=== PATIENT | female | born 1940 ===

== ENCOUNTER 2018-10-07 08:36 | Inpatient (IN) | payer MEDICARE, MEDICAID ==
[~2018-10-07] VITALS: Ht 162.6 cm; Wt 75.7 kg
[2018-10-07] VITALS (10 sets, daily range): BP systolic 107–135; BP diastolic 53–76
[~2018-10-07 08:36] MED LIST: Midazolam 2mg/2ml Inj ONE; fentaNYL 100 mcg/2 mL IV ONE
--- NOTE | 2018-10-07 08:45 | Anethesia Preoperative Eval ---
Anesthesia Pre-op PMH/ROS General Date of Evaluation: Oct 07, 2018 Anesthesiologist: Bennie ASA Score: ASA 3 Mallampati Score Class I : Soft palate, uvula, fauces, pillars visible Class II: Soft palate, uvula, fauces visible Class III: Soft palate, base of uvula visible Class IV: Only hard plate visible Mallampati Classification: Class III Surgeon: Dea Diagnosis: Left knee OA Surgical Procedure: Left TKR Anesthesia History: none Family History: no anesthesia problems Allergies: Coded Allergies: No Known Allergies (Unverified , 10/07/18) Medications: see eMAR Patient NPO?: Yes NPO Date: Oct 06, 2018 NPO Time: 22:00 Past Medical History Cardiovascular: Reports: HTN, other - HLD; Denies: CAD, IA, valve dz, arrhythmia Pulmonary: Reports: other - h/o PE; Denies: asthma, COPD, GIOVANNI Gastrointestinal/Genitourinary: Denies: GERD, CRI, ESRD, other Neurologic/Psychiatric: 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 Exam Physician Exam see chart Constitutional: NAD Cardiovascular: RRR Respiratory: CTA Airway Exam Mallampati Score: Class III MO: full ROM: limited Anesthesia Pre-op A/P Labs see chart Studies Pre-op Studies: EKG - sr Risk Assessment & Plan Assessment: ASA III Plan: GA with spinal Status Change Before Surgery: No Pre-Antibiotics Drug: Ancef 1g Given Within 1 Hr of Incision: Yes Franny Corea MD Oct 07, 2018 08:45
[2018-10-07] MEDS ORDERED: Bacitracin 50000 Units Vial ONE ×2 (09:57→12:15)
[2018-10-07] MEDS ORDERED: NeoSporin Gu Irrig 1ml Amp IRRIG ONE ×2 (09:57→12:15)
[2018-10-07] MEDS ORDERED: OMEPRAZOLE20 M2 ORAL (10:04)
[2018-10-07] MEDS ORDERED: CARAFATE1 G1 ORAL (10:04)
[2018-10-07] MEDS ORDERED: LISINOPRIL10 MG ORAL (10:04)
[2018-10-07] MEDS ORDERED: GABAPENTIN300 MG ORAL (10:04)
[2018-10-07] MEDS ORDERED: VITAMIN D1000 UNI1 ORAL (10:04)
[2018-10-07] MEDS ORDERED: ASPIR 8181 MG ORAL (10:04)
[2018-10-07] MEDS ORDERED: CALCIUM600 M1 PO (10:04)
[2018-10-07] MEDS ORDERED: ATORVASTATIN CA20 MG ORAL (10:04)
[2018-10-07] MEDS ORDERED: MAGNESIUM500 MG PO (10:04)
[2018-10-07] MEDS ORDERED: TRAMADOL HCL50 MG ORAL (10:04)
[2018-10-07] MEDS ORDERED: Lidocaine 1% MPF 10mg/ml 5ml ONE (10:23)
[2018-10-07] MEDS ORDERED: Morphine Sulfate PF 10 ML ONE (10:23)
[2018-10-07] MEDS ORDERED: Propofol 200mg/20ml IV ONE (10:23)
[2018-10-07] MEDS ORDERED: cloNIDine 1000mcg/10ml inj ONE (10:23)
[2018-10-07] MEDS ORDERED: Tranexamic Acid 1,000 MG in NS 55 ML IV ONE (10:30)
--- NOTE | 2018-10-07 10:59 | Pre-Procedure Note/Attestation ---
Pre-Procedure Note/Attestation Complete Prior to Procedure Planned Procedure: left Procedure Narrative: left knee replacement Indications for Procedure Pre-Operative Diagnosis: left knee oa Attestation I attest that I discussed the nature of the procedure; its benefits; risks and complications; and alternatives (and the risks and benefits of such alternatives ), prior to the procedure, with the patient (or the patient's legal site safety representative). I attest that, if there was a reasonable possibility of needing a blood transfusion, the patient (or the patient's legal site safety representative) was given the [facility] standardized written summary, pursuant to the Shawn Rachel Blood Safety Act ([place] Health and Safety Code # 1645, as amended). I attest that I re-evaluated the patient just prior to the surgery and that there has been no change in the patient's H&P, except as documented below: Umair Reilly MD Oct 07, 2018 10:58
[2018-10-07] MEDS ORDERED: Sterile Water Irrig 1000ml IRRIG ONE (11:00)
[2018-10-07] MEDS ORDERED: NS Irrig 1000ml ONE (11:00)
[2018-10-07] MEDS ORDERED: HYDROmorphone 1mg/ml Carpuject SUBQ PRN (11:00)
[2018-10-07] MEDS ORDERED: Metoclopramide 10mg/2ml Inj ONE (11:00)
[2018-10-07] MEDS ORDERED: NS Irrig 2000ml IRRIG ONE ×3 (11:00→11:43)
[2018-10-07] MEDS ORDERED: LR 1000ml 1,000 ML IVLG SCH (11:20)
[2018-10-07] MEDS ORDERED: ePHEDrine 50mg/ml Inj ONE (11:24)
[2018-10-07] MEDS ORDERED: fentaNYL 100 mcg/2 mL IV PRN (11:30)
[2018-10-07] MEDS ORDERED: LORazepam Inj 2mg/ml 1ml IV PRN (11:30)
[2018-10-07] MEDS ORDERED: Midazolam 2mg/2ml Inj IVP PRN (11:30)
[2018-10-07] MEDS ORDERED: Metoclopramide 10mg/2ml Inj IVP PRN (11:30)
[2018-10-07] MEDS ORDERED: DiphenhydrAMINE 50mg/ml Inj IVP PRN (11:30)
[2018-10-07] MEDS ORDERED: Hydromorphone 0.5mg/0.5ml inj IVP PRN (11:30)
--- NOTE | 2018-10-07 12:52 | Immediate Post-Op Evaluation ---
Immediate Post-Op Evalulation Immediate Post-Op Evalulation Procedure: Left TKR Date of Evaluation: Oct 07, 2018 Time of Evaluation: 12:54 IV Fluids: 1.8L Blood Products: 0 Estimated Blood Loss: 125 Urinary Output: 325 Blood Pressure Systolic: 113 Blood Pressure Diastolic: 56 Pulse Rate: 88 Respiratory Rate: 16 O2 Sat by Pulse Oximetry: 99 Temperature (Fahrenheit): 97 Pain Score (1-10): 0 Nausea: No Vomiting: No Complications 0 Patient Status: awake, reacts, patent, none Hydration Status: adequate Drug: Ancef 1g Given Within 1 Hr of Incision: Yes Franny Corea MD Oct 07, 2018 12:52
--- NOTE | 2018-10-07 14:15 | NUR ---
NURSE NOTES: Minna DOSHI brought patient by bed in stable condition. Alert and oriented x4. No complain of pain or distress at this time. Skin intact and dry. Surgical dressing intact and dry. Knee immobilizer placed. IV dressing intact and dry. Belonging given to family member. Bed lowest position. Call light within reach. Will continue to monitor.
[2018-10-07] MEDS ORDERED: Milk of Magnesia 30ml Ud ORAL PRN (15:09)
[2018-10-07] MEDS ORDERED: Chloraseptic Spray 20mL Bottle ORAL PRN (15:14)
[2018-10-07] MEDS ORDERED: Tylenol #3 tab (300mg/30mg) ORAL PRN (15:15)
[2018-10-07] MEDS ORDERED: traMADol 50mg tab ORAL PRN (15:16)
[2018-10-07] MEDS: D5 1/2NS w/KCl 20mEq 1,000 ML IV SCH (16:23)
[2018-10-07] MEDS: HYDROcodone/Acetamin 5/325 tab ORAL PRN (17:57)
[2018-10-07] MEDS: Docusate 100mg/10ml Liq ORAL SCH (18:00)
--- NOTE | 2018-10-07 19:40 | NUR ---
HAND-OFF: Report given to Fitz DOSHI. Patient in stable condition.
--- NOTE | 2018-10-07 19:45 | NUR ---
NURSE NOTES: Received report from GLENDA Pak. Received pt lying in bed, AOX4, Irish speaking only, daughter at bedside used as professor of medicine, denies pain at this time, no distress noted. L knee surgical dressing C/D/I. Scd in-place on right leg. IV fluid infusing as ordered. Kumar catheter in place draining yellow color output. Bed in lowest position and locked, side rails up x 2, call light within reach. Will continue to monitor.
--- NOTE | 2018-10-07 20:09 | Cardiology Progress Note ---
Assessment/Plan Assessment/Plan [id number] dvt ppx lmwh orderd by dr durbin IS on iv ancef u/a preop no wbc , contaminated idalia will give once dose of cipro bid abdulkadir 3 day Objective Last 24 Hour Vital Signs Date Time Temp Pulse Resp B/P (MAP) Pulse Ox O2 Delivery O2 Flow Rate FiO2 10/07/18 16:00 97.5 69 18 120/61 (80) 99 10/07/18 13:50 98.8 60 21 116/58 100 Nasal Cannula 3 10/07/18 13:35 62 12 114/56 100 Nasal Cannula 3 10/07/18 13:20 63 13 121/54 100 Nasal Cannula 3 10/07/18 13:10 67 22 127/53 100 Nasal Cannula 3 10/07/18 12:59 76 20 119/56 99 Simple Mask 6 10/07/18 12:54 74 16 119/58 99 Simple Mask 6 10/07/18 12:52 88 16 99 10/07/18 12:49 97.6 88 16 113/56 99 Simple Mask 6 10/07/18 09:15 97.6 70 18 135/76 (95) 97 10/07/18 09:15 Room Air Asher Gasca MD Oct 07, 2018 20:09
[2018-10-07] MEDS: ceFAZolin 1gm/50ml Premix 50 ML IV SCH (20:27)
[2018-10-07] MEDS: Hydromorphone 0.5mg/0.5ml inj SUBQ PRN (21:03)
[2018-10-08] VITALS: BP 111/63
[2018-10-08] MEDS: HYDROcodone/Acetamin 5/325 tab ORAL PRN (00:18)
[2018-10-08] MEDS: D5 1/2NS w/KCl 20mEq 1,000 ML IV SCH ×2 (00:19→13:58)
[2018-10-08] MEDS: ceFAZolin 1gm/50ml Premix 50 ML IV SCH (03:46)
[2018-10-08] MEDS: Hydromorphone 0.5mg/0.5ml inj SUBQ PRN (03:50)
[2018-10-08 04:00] VITALS: BP 109/62
[2018-10-08] MEDS ORDERED: HYDROcodone/Acetamin 10/325 tab ORAL PRN (06:30)
[2018-10-08] MEDS ORDERED: Hydromorphone 0.5mg/0.5ml inj IVP PRN (06:30)
--- NOTE | 2018-10-08 06:30 | NUR ---
NURSE NOTES: Dr. Milner called ordered to change Dilaudid sub cut to IVP. Per Dr. Milner, give a dose of Dilaudid 0.5mg IVP once medication is verified. Will carry out order.
--- NOTE | 2018-10-08 06:32 | NUR ---
NURSE NOTES: Dilaudid 0.5mg IVP administered early per Dr. Milner's order.
--- NOTE | 2018-10-08 07:29 | NUR ---
HAND-OFF: Report given to GLENDA Padilla. Pt in stable condition.
[2018-10-08 07:36] LABS: BASOPHILS % (AUTO) 0.3 % (0.0-2.0); EOSINOPHILS % (AUTO) 0.1 % (0.0-3.0); HEMATOCRIT 36.9 % (37.0-47.0); HEMOGLOBIN 12.1 G/DL (12.0-16.0); LYMPHOCYTES % (AUTO) 12.4 % (20.0-45.0); MEAN CORPUSCULAR VOLUME 88 FL (80-99); MONOCYTES % (AUTO) 9.9 % (1.0-10.0); NEUTROPHILS % (AUTO) 77.4 % (45.0-75.0); PLATELET COUNT 191 K/UL (150-450); RED BLOOD COUNT 4.17 M/UL (4.20-5.40); RED CELL DISTRIBUTION WIDTH 12.6 % (11.6-14.8); WHITE BLOOD COUNT 8.8 K/UL (4.8-10.8)
[2018-10-08 08:00] VITALS: BP 133/66
--- NOTE | 2018-10-08 08:00 | NUR ---
NURSE NOTES: Received report from Fitz Whittaker. pt a/a/o x4 laying in bed with no signs of distress or other issues at this time. surgical dressing dry and intact, knee immobilizer in place. IV on the right PONCE #18 running D5 1/2 NS @75ml/hr. pt is on a regular diet and tolerating it well. pt's daughter at the bedside. call light within reach. bed in lowest position. Side rales up x2. I will f/u as needed.
[2018-10-08] MEDS: Docusate 100mg/10ml Liq ORAL SCH ×2 (08:16→17:17)
[2018-10-08] MEDS: Enoxaparin 40mg Inj SUBQ SCH (08:17)
[2018-10-08] MEDS: Hydromorphone 0.5mg/0.5ml inj IVP PRN ×2 (09:02→12:34)
--- NOTE | 2018-10-08 09:30 | NUR ---
PT EVALUATION NOTE Patient seen for initial evaluation, see complete evaluation for details. Patient presents with impaired functional mobility and pain s/p L TKR. Patient will benefit from skilled inpatient PT intervention to address strength, balance, safety and functional mobility. Recommend discharge home with home PT and family assistance once cleared by MD. Patient received FWW for home use, may benefit from raised toilet seat. Addendum: 10/08/18 at 1204 by NICK OCONNELL PT Amended: Links added.
--- NOTE | 2018-10-08 09:32 | Diagnostic Imaging Report ---
Indications: Postoperative, Status post total knee arthroplasty; pain Technique: Two views of the left knee Comparison: 4 hours earlier Findings: Two postoperative views of the left knee demonstrate total knee arthroplasty, good anatomic alignment of the prosthesis. Retained air from the surgical exposure is seen within the soft tissues. There are overlying skin ellie. A knee immobilizer is in place. Impression: Postoperative left knee, no unusual features.
--- NOTE | 2018-10-08 09:32 | Diagnostic Imaging Report ---
Indication: Knee pain Technique: 3 views of the knee Comparison: None Findings: There is medial compartmental and patellofemoral compartmental degenerative joint space narrowing. There is chondrocalcinosis of the medial and lateral menisci. Degenerative proliferative changes are seen as well. No acute fractures. No dislocations. No suprapatellar effusion. Impression: Degenerative changes, as described No acute bony trauma Meniscal chondrocalcinosis
[2018-10-08 12:00] VITALS: BP 129/58
--- NOTE | 2018-10-08 13:13 | Consultation ---
DATE OF CONSULTATION: 10/07/2018 INTERNAL MEDICINE CONSULTATION CONSULTING PHYSICIAN: Asher Gasca M.D. REFERRING PHYSICIAN: Umair Reilly M.D. REASON FOR REFERRAL: Postoperative medical care. HISTORY OF PRESENT ILLNESS: This is a 78-year-old female, who is known to me from prior evaluation and hospitalization in the office. The patient has undergone total knee replacement by Dr. Mishra. She is being seen postoperatively. She does not have any chest pain or pressure. No PND. No orthopnea. No palpitations. No dizziness or lightheadedness. PAST MEDICAL HISTORY: Positive for history of hypertension, hyperlipidemia, CVA with left-sided weakness at age 36, history of renal insufficiency, history of pulmonary embolism after DVT treated with Coumadin for 10 months in 2013 which maybe related to long air flights, otherwise denied other medical problems. PAST SURGICAL HISTORY: Right knee surgery, , and hemorrhoidectomy. ALLERGIES: None. FAMILY HISTORY: No premature coronary artery disease. SOCIAL HISTORY: Tobacco, never. Alcohol, never. Drugs, never. with three kids. 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 REVIEW OF SYSTEMS: GASTROINTESTINAL: Negative. GENITOURINARY: Negative. She has a Kumar catheter. PULMONARY: Negative. CONSTITUTIONAL: Negative. NEUROLOGIC: Negative. PHYSICAL EXAMINATION: GENERAL: Shows to be female, in no respiratory distress. VITAL SIGNS: Her blood pressure is anywhere between 116/50 to 127/53, heart rate is 60, and temperature is 98 degrees. NECK: Supple. No jugular venous distention. LUNGS: Clear to auscultation and percussion. CARDIAC: Regular rate and rhythm. No heaves, thrills, gallops, or rubs are noted. ABDOMEN: Soft, nontender. Positive bowel sounds. EXTREMITIES: There is no edema to the area below the knee. She is able to move her feet without any problems. LABORATORY AND DIAGNOSTIC DATA: Laboratory values are none. Postop and preop laboratories were reviewed are addended elsewhere. Her urinalysis had shown basically a contaminated urine. She had no wbc's in the urinalysis, so she was not felt to need any treatment. INR was 1 and PTT was normal. White count 5.4, hemoglobin 14.6, platelet count of 263,000. PTT was 27. Sodium 142, potassium 5, chloride 105, bicarbonate 24, BUN of 16, creatinine of 1.0. Other than the above, CMP was also negative. ASSESSMENT AND PLAN: 1. Postop day 0, post total knee replacement. 2. History of hypertension. 3. History of hyperlipidemia. 4. History of pulmonary embolism. 5. History of deep venous thrombosis. Dr. Mishra, this patient was seen in cardiac consultation. The patient has had an ischemia evaluation that was fairly unremarkable with very small ischemic burden. No significant other abnormalities were noted. Chest x-ray was normal preop. The patient is doing well postoperatively. She should be started on DVT prophylaxis. She will be treated with a course of Ancef for the time being. She is on IV fluids until she starts her oral medications. Her usual medications will be otherwise continued. Thus, she is supposed to get started with Lovenox as ordered tomorrow morning for DVT prophylaxis. She will be monitored as carefully as needed and possible. Dr. Milner will see the patient in consultation for pain management. Asher Gasca M.D. DR: CINDI JOB#: [id number] CC:
--- NOTE | 2018-10-08 13:47 | 48 Hour Post Anesthesia Eval ---
Post Anesthesia Evaluation Procedure: Left TKR Date of Evaluation: Oct 08, 2018 Time of Evaluation: 13:45 Blood Pressure Systolic: 125 0: 76 Pulse Rate: 72 Respiratory Rate: 20 Temperature (Fahrenheit): 97.5 O2 Sat by Pulse Oximetry: 98 Airway: patent Nausea: No Vomiting: No Pain Intensity: 3 Hydration Status: adequate Cardiopulmonary Status: stable Mental Status/LOC: patient returned to baseline Follow-up Care/Observations: n/a Post-Anesthesia Complications: none Follow-up care needed: N/A Nii Solares MD Oct 08, 2018 13:47
--- NOTE | 2018-10-08 14:00 | NUR ---
NURSE NOTES: per PT pt was not able to tolerated CPM due to pain. pt was only able to tolerate up to 35 degrees x3hrs. I will f/u as needed.
[2018-10-08] MEDS ORDERED: Tubing IV Secondary IV ONE (14:57)
[2018-10-08 16:00] VITALS: BP 135/67
--- NOTE | 2018-10-08 16:30 | Progress Note ---
DATE: 10/08/2018 ACUTE PAIN MANAGEMENT PHYSICIAN PROGRESS NOTE: MEDICATIONS: Medication administration record reviewed. Medications include IV fluids, ciprofloxacin, Colace, Lipitor, Pepcid, Lovenox, Protonix, Neurontin. PRN medications include Fioricet, Tylenol no. 3 with Codeine, Benadryl, Catapres, Chloraseptic spray, milk of magnesia, Mylanta, Zofran, tramadol, [place], Dilaudid. LABORATORY STUDIES: No interval laboratory studies. OBJECTIVE: Vital signs within normal limits. Afebrile, pulse 68, respirations 17, blood pressure 109/62, oxygen saturation 96% on room air. I saw the patient at bedside with her daughter who interpreted Hungarian. I discussed the case with the overnight nurse RN, Fitz. The patient's pain levels have been considerable overnight. She does have obstructive sleep apnea symptoms, so she needs to be monitored closely for any respiratory difficulties. She is 78 years old and at risk for perioperative morbidity. The patient was trialed on the doses of [place] 5 mg along with the subcutaneous Dilaudid 0.5 mg. The dosing of 0.5 mg Dilaudid seemed to be effective, but the patient did request that the dose be switched from subcutaneous to the intravenous route. Since the patient did tolerate the 0.5 mg dose subcutaneous well, I will trial her on the IV dose to see if the patient prefers such. The patient did trial [place] 5 mg. This dosing was inadequate and I will double the dose to 10 mg. The nursing and pharmacy departments have been instructed to wait at least 60 minutes between any doses of sedating medications to avoid respiratory depression. Dr. Gasca is following the patient for her multiple medical issues including her high risk for DVT. The patient does have a history of pulmonary embolism in the past. The patient has been started on anticoagulation agent Lovenox 40 mg subcutaneously, which will start at 9 a.m. this morning. I have ordered incentive spirometer to encourage good pulmonary toilet. I have streamlined her medication list discontinuing the previous orders for Tylenol no. 3 with Codeine. She will continue with her Neurontin 3 times a day. She takes chronically. Roman Milner M.D. DR: JONE JOB#: [id number] CC:
--- NOTE | 2018-10-08 17:00 | Consultation ---
DATE OF CONSULTATION: 10/07/2018 CONSULTING PHYSICIAN: Roman Milner M.D. REFERRING PHYSICIAN: Umair Reilly M.D. REASON FOR CONSULTATION: Acute pain consult. HISTORY OF PRESENT ILLNESSS: Dear Dr. Reilly, Thank you kindly for consulting me to evaluate and render an opinion as to how to proceed in the management of the patient's acute postoperative left knee pain after left total knee arthroplasty. The patient is a 78-year-old elderly woman, who underwent left total knee arthroplasty, today consulted me to help with her pain control. I saw the patient at bedside. I performed detailed history and physical examination. I discussed the case with the recovery room nurse RN, Zain along with the orthopedic floor nurse RN, Pasha. I reviewed the medical record in detail including advance directives. PAST MEDICAL HISTORY: 1. Postoperative left knee pain, status post left total knee arthroplasty by Dr. Umair Reilly in September 2018. 2. Elderly age. 3. GERD. 4. Hypertension. 5. Hypercholesterolemia. 6. History of previous pulmonary embolism. PAST SURGICAL HISTORY: Right knee surgery, section, and hemorrhoidectomy. ALLERGIES: No known drug allergies. MEDICATIONS: Medications at home, baby aspirin, Zocor, calcium, gabapentin 300 mg three times a day, lisinopril, Prilosec, sucralfate (Carafate), and Ultram. FAMILY HISTORY: Noncontributory. SOCIAL HISTORY: Negative for tobacco or alcohol usage. REVIEW OF SYSTEMS: Per Dr. Gasca. PHYSICAL EXAMINATION: VITAL SIGNS: Age 78, height 162 cm, weight 76 kg, and body mass index 29. Vital signs, afebrile, pulse 69, respirations 18, blood pressure 120/61, and oxygen saturation 99%. CARDIOPULMONARY: Per Dr. Gasca. EXTREMITIES: Left knee pain with range of motion. DIAGNOSTIC AND LABORATORY DATA: Diagnostic testing shows heart rate 57 with a 12-lead EKG from 10/01/2018. Myocardial stress testing PET/CT perfusion scan shows overall mild reversible defect of the inferior wall and left ventricular enlargement. Preoperative chest x-ray shows no acute cardiopulmonary disease on 10/01/2018. Laboratory studies in the medical record. IMPRESSION: 1. Postoperative left knee pain, status post left total knee arthroplasty by Dr. Umair Reilly in September 2018. 2. Elderly age. 3. GERD. 4. Hypertension. 5. Hypercholesterolemia. 6. History of previous pulmonary embolism. RECOMMENDATIONS: The patient is at higher risk for deep venous thrombosis postoperatively. Dr. Gasca will be managing her anticoagulation care along with the surgeon, Dr. Umair Reilly. The patient has been using Neurontin and tramadol preoperatively. I will trial her on pain medication starting with Tylenol with Codeine one tablet orally every 4 hours p.r.n. for mild pain. I have ordered Fioricet one tablet orally every 8 hours p.r.n. for headaches. I will trial her on [place] 5 mg every 3 hours p.r.n. for severe pain and I have ordered a breakthrough dose of Dilaudid 0.5 mg subcutaneously every 3 hours p.r.n. for 10/[address] her on Pepcid b.i.d. 20 mg for GI ulcer prophylaxis. I will also order a dose of p.r.n. Mylanta in case of GERD symptoms. I have ordered Zofran 4 mg intravenously every 4 hours in case of any nausea symptoms. I will place the patient on Colace 100 mg b.i.d. for bowel regularity and with a p.r.n. dose of milk of magnesia as a rescue laxative. I have also ordered Chloraseptic spray for any topical sore throat complaints. I have ordered Fioricet tablets in case of any headache complaints. I will order incentive spirometer to encourage good pulmonary toilet for this elderly woman. I deferred multiple medical issues to Dr. Gasca, Cardiology who is following the patient. Dr. fei Reilly has suggested the patient transfer to a SNF when she is cleared medically for discharge. If onsite case manager discharge clear from the hospital, has been consulted by the surgeon. Roman Milner M.D. DR: SRIKANTH JOB#: [id number] CC:
--- NOTE | 2018-10-08 18:30 | Consultation ---
DATE OF CONSULTATION: 10/07/2018 CONSULTING PHYSICIAN: Roman Milner M.D. REFERRING PHYSICIAN: Umair Reilly M.D. REASON FOR CONSULTATION: Acute pain consult. HISTORY OF PRESENT ILLNESS: Dear Dr. Reilly, Thank you kindly for consulting me to evaluate and render an opinion as to how to proceed in the management of the patient's acute postoperative left knee pain after left total knee arthroplasty. The patient is a 78-year-old elderly woman who underwent left total knee arthroplasty, today consulted me to help with her pain control. I saw the patient at bedside. I performed detailed history and physical examination. I discussed the case with the recovery room nurse RN, Zain, along with the orthopedic floor nurse RN, Pasha. I reviewed the medical record in detail including advance directives. PAST MEDICAL HISTORY: 1. Postoperative left knee pain, status post left total knee arthroplasty by Dr. Umair Reilly in September 2018. 2. Elderly age. 3. GERD. 4. Hypertension. 5. Hypercholesterolemia. 6. History of previous pulmonary embolism. PAST SURGICAL HISTORY: Right knee surgery, section, and hemorrhoidectomy. ALLERGIES: No known drug allergies. MEDICATIONS: Medications at home, baby aspirin, Zocor, calcium, gabapentin 300 mg three times a day, lisinopril, Prilosec, sucralfate (Carafate), and Ultram. FAMILY HISTORY: Noncontributory. SOCIAL HISTORY: Negative for tobacco or alcohol usage. REVIEW OF SYSTEMS: Per Dr. Gasca. PHYSICAL EXAMINATION: VITAL SIGNS: Age 78, height 162 cm, weight 76 kg, and body mass index 29. Vital signs, afebrile, pulse 69, respirations 18, blood pressure 120/61, and oxygen saturation 99%. CARDIOPULMONARY: Per Dr. Gasca. EXTREMITIES: Left knee pain with range of motion. DIAGNOSTIC AND LABORATORY DATA: Diagnostic testing shows heart rate 57 with a 12-lead EKG from 10/01/2018. Myocardial stress testing, PET/CT perfusion scan shows overall mild reversible defect of the inferior wall and left ventricular enlargement. Preoperative chest x-ray shows no acute cardiopulmonary disease on 10/01/2018. Laboratory studies in the medical record. IMPRESSION: 1. Postoperative left knee pain, status post left total knee arthroplasty by Dr. Umair Reilly in September 2018. 2. Elderly age. 3. GERD. 4. Hypertension. 5. Hypercholesterolemia. 6. History of previous pulmonary embolism. RECOMMENDATIONS: The patient is at higher risk for deep venous thrombosis postoperatively. Dr. Gasca will be managing her anticoagulation care along with the surgeon, Dr. Umair Reilly. The patient has been using Neurontin and tramadol preoperatively. I will trial her on pain medication starting with Tylenol with Codeine one tablet orally every 4 hours p.r.n. for mild pain. I have ordered Fioricet one tablet orally every 8 hours p.r.n. for headaches. I will trial her on [place] 5 mg every 3 hours p.r.n. for severe pain and I have ordered a breakthrough dose of Dilaudid 0.5 mg subcutaneously every 3 hours p.r.n. for 10/[address] her on Pepcid b.i.d. 20 mg for GI ulcer prophylaxis. I will also order a dose of p.r.n. Mylanta in case of GERD symptoms. I have ordered Zofran 4 mg intravenously every 4 hours in case of any nausea symptoms. I will place the patient on Colace 100 mg b.i.d. for bowel regularity with a p.r.n. dose of milk of magnesia as a rescue laxative. I have also ordered Chloraseptic spray for any topical sore throat complaints. I have ordered Fioricet tablets in case of any headache complaints. I will order incentive spirometer to encourage good pulmonary toilet for this elderly woman. I deferred multiple medical issues to Dr. Gasca, Cardiology, who is following the patient. Dr. Reilly has suggested the patient transfer to a SNF when she is cleared medically for discharge through the case advocate. Discharge cleared out from the hospital, has been consulted by the surgeon. Roman Milner M.D. DR: SRIKANTH JOB#: [id number] CC:
[2018-10-08 20:00] VITALS: BP 127/63
--- NOTE | 2018-10-08 20:00 | NUR ---
NURSE NOTES: Patient received in bed, awake, no acute distress. IV infusing at 75cc/hr. FC draining via gravity. C/o pain 10/04 but tolerating at this time, will continue to monitor. Daughter is at bedside. Call light in reach.
--- NOTE | 2018-10-08 20:02 | NUR ---
HAND-OFF: Report given to Blair DOSHI. pt in stable condition.
--- NOTE | 2018-10-08 21:14 | Cardiology Progress Note ---
Assessment/Plan Assessment/Plan 1. Postop day 1, post total knee replacement. 2. History of hypertension. 3. History of hyperlipidemia. 4. History of pulmonary embolism. 5. History of deep venous thrombosis. lmwh sx for dvt ppx ancef of pb replacemn on cipro for abn urine leonela contamin ated with external idalia unlikey infected ambualte when able to pain managment PT Subjective Cardiovascular: Denies: chest pain, lightheadedness, palpitations Respiratory: Denies: shortness of breath Gastrointestinal/Abdominal: Denies: abdominal pain Genitourinary: Denies: burning Objective Last 24 Hour Vital Signs Date Time Temp Pulse Resp B/P (MAP) Pulse Ox O2 Delivery O2 Flow Rate FiO2 10/08/18 20:00 98.5 76 18 127/63 (84) 94 10/08/18 16:00 98.4 76 18 135/67 (89) 97 10/08/18 13:47 72 20 98 10/08/18 13:04 97.8 10/08/18 12:00 97.8 74 18 129/58 (81) 95 10/08/18 09:00 Room Air 10/08/18 08:00 98.1 76 17 133/66 (88) 95 10/08/18 04:00 97.8 68 17 109/62 (78) 96 10/08/18 00:00 97.8 69 18 111/63 (79) 93 General Appearance: no apparent distress, alert Neck: supple Respiratory/Chest: lungs clear Abdomen: normal bowel sounds, non tender, soft Extremities: no swelling Intake and Output 10/07/18 10/08/18 18:59 06:59 Intake Total 2200 ml 1120 ml Output Total 450 ml 1000 ml Balance 1750 ml 120 ml Intake Oral 120 ml IV Total 2000 ml 1000 ml Other 200 ml Output Urine Total 325 ml 1000 ml Estimated Blood Loss 125 ml # Voids 1 Laboratory Tests Test 10/08/18 06:09 10/08/18 07:20 White Blood Count 8.8 K/UL (4.8-10.8) Red Blood Count 4.17 M/UL (4.20-5.40) L Hemoglobin 12.1 G/DL (12.0-16.0) Hematocrit 36.9 % (37.0-47.0) L Mean Corpuscular Volume 88 FL (80-99) Mean Corpuscular Hemoglobin 29.0 PG (27.0-31.0) Mean Corpuscular Hemoglobin Concent 32.8 G/DL (32.0-36.0) Red Cell Distribution Width 12.6 % (11.6-14.8) Platelet Count 191 K/UL (150-450) Mean Platelet Volume 7.4 FL (6.5-10.1) Neutrophils (%) (Auto) 77.4 % (45.0-75.0) H Lymphocytes (%) (Auto) 12.4 % (20.0-45.0) L Monocytes (%) (Auto) 9.9 % (1.0-10.0) Eosinophils (%) (Auto) 0.1 % (0.0-3.0) Basophils (%) (Auto) 0.3 % (0.0-2.0) Prothrombin Time 10.6 SEC (9.30-11.50) Prothromb Time International Ratio 1.0 (0.9-1.1) Asher Gasca MD Oct 08, 2018 21:14
[2018-10-09] VITALS (8 sets, daily range): BP systolic 127–146; BP diastolic 65–74
[2018-10-09] MEDS: D5 1/2NS w/KCl 20mEq 1,000 ML IV SCH ×2 (02:13→21:26)
--- NOTE | 2018-10-09 06:30 | NUR ---
NURSE NOTES: Patient was assisted to ambulate to the restroom with FWW. Patient still unable to have bowel movement even after MOM last night. Daughter requests if pt can take her own psyllium capsule from home. Own psyllium capsules were not in their original packaging. Able to contact Dr. Gasca and curt to give psyllium to patient via own hospital formulary.
[2018-10-09] MEDS ORDERED: Metamucil Pkt ORAL PRN (07:00)
--- NOTE | 2018-10-09 07:34 | NUR ---
HAND-OFF: Report given to Pasha DOSHI.
--- NOTE | 2018-10-09 07:35 | NUR ---
NURSE NOTES: Patient lying in bed awake. Complain of pain 4/10 on surgical site and will continue to monitor. Skin intact and dry. Surgical dressing intact and dry and on knee immobilizer. IV dressing intact and dry. Kumar catheter patent and draining well. Bed lowest position. Call light within reach. Will continue to monitor.
[2018-10-09] MEDS: Docusate 100mg/10ml Liq ORAL SCH ×2 (09:00→17:20)
[2018-10-09] MEDS: Enoxaparin 40mg Inj SUBQ SCH (09:42)
[2018-10-09] MEDS: Hydromorphone 0.5mg/0.5ml inj IVP PRN (10:23)
--- NOTE | 2018-10-09 14:22 | NUR ---
CASE MANAGEMENT:REVIEW 10/07/18 78 YR OLD FEMALE SI: LT KNEE OSTEOARTHRITIS 97.6 70 18 135/76 97% ON RA IS: TO SURGERY FOR LT KNEE TOTAL REPLACEMENT : TO MED/SURG POST OP 10/09/18 SI: POD #2 99.3 87 18 135/74 96% ON RA IS: IVF@75/HR IV DILAUDID Q3HRS PRN LOVENOX SQ QD PROTONIX PO QD LIPITOR PO QHS CIPRO PO Q12 : MED/SURG STATUS
--- NOTE | 2018-10-09 17:00 | NUR ---
NURSE NOTES: Removed Kumar catheter with 900 cc yellow urine. No complain of pain or discomfort. Patient tolerated procedure well. Will continue to monitor.
--- NOTE | 2018-10-09 17:30 | NUR ---
NURSE NOTES: Surgical dressing changed. No signs and symptoms of bleeding or infection. Patient tolerated procedure well. Will continue to monitor.
--- NOTE | 2018-10-09 18:15 | Operative Note - Dictated ---
DATE OF OPERATION: 10/08/2018 PREOPERATIVE DIAGNOSIS: Left knee end-stage osteoarthritis. POSTOPERATIVE DIAGNOSIS: Left knee end-stage osteoarthritis. PROCEDURE: Left total knee replacement with a Rosalba Persona knee, #7 femur, D tibia, 10 mm poly. SURGEON: Umair Reilly M.D. WATER RESOURCE PROJECT MANAGER: Unknown. PACKAGING COORDINATOR: None. PREOPERATIVE NOTE: This is a pleasant lady who has been having end-stage knee issues. I explained to her the surgery and risks being infection, bleeding, anesthetic risks, neurovascular damage, DVT, PE, failure of the operation, the patient agreed. Consents were obtained. OPERATIVE ROOM NOTE: Under the benefit of endotracheal intubation and general anesthetic, the patient's knee was prepped and draped in an appropriate manner. A midline incision was made incised through subcutaneous tissue down to the medial retinaculum. I everted the patella and the patella was prefect. There are no changes. She had developed pain, denervated around the patellae. I then drilled down the femur on AP and lateral planes, making a distal femur cut block flexion contracture. I then sized this to be a #7 making my anterior cut, posterior cut, anterior chamfer and posterior chamfers cuts. I then placed my femoral component in #7. Worked on the tibia. I took a 2 mm off the low side, which was the medial side making my tibial plateau cut. This was then kept to mechanical axis. I then proceeded to size to D with respect to medial rotation. cut. I am very pleased with this and 10 mm insert, cemented the tibia and 10 mm insert via full extension, full flexion, irrigated the wound copiously, removing excess cement. I closed the wound over the retinaculum with Vicryl, subcutaneous tissue, 2-0 Vicryl, skin with ellie. The patient went to recovery room in a stable condition. No complications. Umair Reilly M.D. DR: Kasia JOB#: [id number] CC:
--- NOTE | 2018-10-09 19:30 | NUR ---
HAND-OFF: Report given to Princess WHITING. Patient in stable condition.
--- NOTE | 2018-10-09 19:30 | NUR ---
NURSE NOTES:Patient received from ANIYAH Antonio tdenies any pain at this time . no s/s of distress noted LH g#18 D51/2 NS WITH 20 MEQ @75 CC/HRI infusing well. Left knee dressing C/D/I with knee immobilizer and ice pack in place . call light within reach . bed in low position at all times . will continue to monitor.
--- NOTE | 2018-10-09 19:52 | Cardiology Progress Note ---
Assessment/Plan Assessment/Plan 1. Postop day 2, post total knee replacement. 2. History of hypertension. 3. History of hyperlipidemia. 4. History of pulmonary embolism. 5. History of deep venous thrombosis. lmwh sx for dvt ppx ancef of knee replacemn on cipro for abn urine likley contamin ated with external idalia unlikey infected only for 3 days ambualte pain managment PT no bm will use dulcolax Subjective Cardiovascular: Denies: chest pain, lightheadedness, palpitations Respiratory: Denies: shortness of breath Gastrointestinal/Abdominal: Denies: abdominal pain Genitourinary: Denies: burning Objective Last 24 Hour Vital Signs Date Time Temp Pulse Resp B/P (MAP) Pulse Ox O2 Delivery O2 Flow Rate FiO2 10/09/18 16:00 99.8 96 18 141/70 (93) 96 10/09/18 12:00 99.3 87 18 135/74 (94) 96 10/09/18 09:00 Room Air 10/09/18 08:00 98.9 90 17 138/69 (92) 93 10/09/18 04:00 99.6 89 18 143/71 (95) 93 10/09/18 00:00 99.7 98 18 139/65 (89) 93 10/08/18 21:00 Room Air 10/08/18 20:00 98.5 76 18 127/63 (84) 94 General Appearance: no apparent distress, alert Neck: supple Cardiovascular: normal rate Respiratory/Chest: lungs clear Abdomen: normal bowel sounds, non tender, soft Extremities: no swelling Intake and Output 10/08/18 10/09/18 18:59 06:59 Intake Total 675 ml 675 ml Output Total 1100 ml 2400 ml Balance -425 ml -1725 ml Intake Oral 600 ml IV Total 75 ml 675 ml Output Urine Total 1100 ml 2400 ml Laboratory Tests Test 10/09/18 05:45 Prothrombin Time 10.5 SEC (9.30-11.50) Prothromb Time International Ratio 1.0 (0.9-1.1) Microbiology Date/Time Source Procedure Growth Status 10/07/18 09:20 Nasal Nares MRSA Culture - Final NO METHICILLIN RESISTANT STAPH AUREUS... Complete Asher Gasca MD Oct 09, 2018 19:52
--- NOTE | 2018-10-09 21:08 | NUR ---
NURSE NOTES:Patient VS T.100.5 P 92 /MIN . R19 /MIN B/P 146/68 SPO2 96% Felipe DR. Elo Sterling with new orders If Patient T>101 get 2 set of blood culture. UA & C/S Addendum: 10/09/18 at 2123 by XAVIER LEWIS LVN UA/C/S X1 NOW.
[2018-10-09] MEDS: HYDROcodone/Acetamin 10/325 tab ORAL PRN (21:25)
--- NOTE | 2018-10-09 22:23 | NUR ---
NURSE NOTES:Patient UA AND CS Specimen obtained sent to laboratory per per MD orders.will continue to monitor .
[2018-10-09 22:56] LABS: APPEARANCE,URINE CLEAR; BILIRUBIN, URINE NEGATIVE (NEGATIVE); COLOR,URINE PALE YELLOW; GLUCOSE, URINE (UA) NEGATIVE (NEGATIVE); KETONES,URINE NEGATIVE (NEGATIVE); LEUKOCYTE ESTERASE ,URINE 2+ (NEGATIVE); NITRITE,URINE NEGATIVE (NEGATIVE); PH,URINE 8 (4.5-8.0); PROTEIN,URINE 1+ (NEGATIVE); UROBILINOGEN,URINE NORMAL MG/DL (0.0-1.0)
[2018-10-10 04:00] VITALS: BP 128/73
[2018-10-10] MEDS: HYDROcodone/Acetamin 10/325 tab ORAL PRN ×2 (05:02→23:09)
--- NOTE | 2018-10-10 07:27 | Brief Operative Note ---
Immediate Post Operative Note Operative Note Pre-op Diagnosis: left knee oa Procedure: left knee replacemeny Post-op Diagnosis: left knee arthritis Post-op Diagnosis: same as pre-op Findings: consistent w/pre-op dx studies Surgeon: lizzeth Anesthesia: general Specimen: yes Complications: none Condition: stable Fluids: y Estimated Blood Loss: minimal Drains: none Implant(s) used?: Yes Umair Reilly MD Oct 10, 2018 07:27
--- NOTE | 2018-10-10 07:30 | NUR ---
NURSE NOTES: Received pt from GLENDA PARK. Pt is alert and orient x1. pt is in RA. No SOB or acute respiratory distress noted. pt has intact iv access RH 18g is running well. pt's daughter is on bed side. all needs attended, bed is locked and is in the lowest position. call light within easy reach. will continue to monitor.
--- NOTE | 2018-10-10 07:40 | NUR ---
HAND-OFF: Report given to Ann Yadav
[2018-10-10 08:00] VITALS: BP 124/74
[2018-10-10] MEDS: Docusate 100mg cap ORAL SCH ×2 (09:02→18:10)
[2018-10-10] MEDS: Enoxaparin 40mg Inj SUBQ SCH (09:03)
[2018-10-10] MEDS: D5 1/2NS w/KCl 20mEq 1,000 ML IV SCH ×2 (11:05→23:15)
[2018-10-10 12:00] VITALS: BP 131/58
[2018-10-10 16:14] VITALS: BP 135/54
[2018-10-10] MEDS: Hydromorphone 0.5mg/0.5ml inj IVP PRN (18:15)
--- NOTE | 2018-10-10 19:45 | NUR ---
NURSE NOTES: Pt lying in bed w/daughter at bedside, bed in lowest position, and call light within reach. Pt A&Ox4, VSS, and in no apparent distress at this time. IV site intact/asymptomatic w/IVF @ 75 ml/hr; knee immobilizer on; and surgical dressing stained but otherwise C/D/I. Pt c/o constipation and would like to have enema; will contact MD. Will continue to monitor.
--- NOTE | 2018-10-10 19:45 | NUR ---
HAND-OFF: Report given to GLENDA VITAL.
[2018-10-10 20:00] VITALS: BP 123/63
[2018-10-10] MEDS ORDERED: Fleet's Enema 133ml RECTAL ONE (22:00)
--- NOTE | 2018-10-10 22:34 | Cardiology Progress Note ---
Assessment/Plan Assessment/Plan continue anticoagulation, pain control, OOB exercise offered enema for constipation, but the patient wants to wait Subjective Subjective the patient is doing well, has significant left knee pain, but otherwise doing fine, no dyspnea no BM for 3 days Objective Last 24 Hour Vital Signs Date Time Temp Pulse Resp B/P (MAP) Pulse Ox O2 Delivery O2 Flow Rate FiO2 10/10/18 20:00 100.0 90 18 123/63 (83) 98 10/10/18 18:45 98.2 10/10/18 16:14 98.2 80 20 135/54 (81) 94 10/10/18 12:00 97.5 87 20 131/58 (82) 95 10/10/18 09:00 Room Air 10/10/18 08:00 97.9 91 19 124/74 (91) 94 10/10/18 05:32 98.0 10/10/18 04:00 98.0 84 20 128/73 (91) 96 10/09/18 23:47 99.4 95 20 127/66 (86) 97 General Appearance: no apparent distress EENT: PERRL/EOMI Neck: supple Rhythm: NSR Cardiovascular: regular rhythm Respiratory/Chest: lungs clear Abdomen: non tender Extremities: other - left knee dressing, mild swelling Intake and Output 10/09/18 10/10/18 19:00 07:00 Intake Total 2575 ml 1675 ml Output Total 750 ml Balance 2575 ml 925 ml Intake Oral 2500 ml 850 ml IV Total 75 ml 825 ml Output Urine Total 750 ml # Voids 2 3 Laboratory Tests Test 10/10/18 05:40 Prothrombin Time 10.1 SEC (9.30-11.50) Prothromb Time International Ratio 1.0 (0.9-1.1) Renee Andre MD Oct 10, 2018 22:34
--- NOTE | 2018-10-10 23:00 | NUR ---
NURSE NOTES: Pt had soft BM after enema administration. Will continue to monitor.
[2018-10-11] VITALS: BP 129/54
[2018-10-11 04:00] VITALS: BP 113/65
[2018-10-11] MEDS: D5 1/2NS w/KCl 20mEq 1,000 ML IV SCH (04:10)
[2018-10-11] MEDS ORDERED: Magnesium Citrate Liq Btl ORAL PRN (06:00)
--- NOTE | 2018-10-11 07:30 | NUR ---
HAND-OFF: Report given to GLENDA Padilla.
[2018-10-11 08:00] VITALS: BP 129/68
--- NOTE | 2018-10-11 08:00 | NUR ---
NURSE NOTES: Received report from Danyelle DOSHI. pt a/a/o x4 laying in bed with no signs of distress or other issues at this time. daughter at bed side. surgical dressing stain, RN will change dressing as indicated by MD. knee immobilizer in place. IV on the Left PONCE gauge#22 running D5 1/2 NS+20 mEq at 75ml/hr. pt on a regular diet. tolerating well. pt stated that she is ready to go home. RN will contact MD to request clearance. clal light within reach. bed in lowest position. side rales up x2. I will f/u as needed.
[2018-10-11 08:14] LABS: INR 0.9 (0.9-1.1)
[2018-10-11] MEDS: Docusate 100mg cap ORAL SCH (09:30)
[2018-10-11] MEDS: HYDROcodone/Acetamin 10/325 tab ORAL PRN ×2 (09:31→13:35)
[2018-10-11] MEDS: Enoxaparin 40mg Inj SUBQ SCH (09:32)
[2018-10-11 12:00] VITALS: BP 123/48
--- NOTE | 2018-10-11 17:30 | NUR ---
NURSE NOTES: Received order to dc home. discharge instructions and belongings given to patient and pts family. Surgical dressing changed prior to d/c. IV removed prior to d/c. pt left the floor via w/c accompanied of her family with no signs of distress or other issues at this time. family will provide transportation. I will f/u as needed.
--- NOTE | 2018-10-14 12:58 | Discharge Summary ---
Discharge Summary Hospital Course Date of Admission Oct 07, 2018 at 08:43 Date of Discharge Oct 11, 2018 at 16:30 Admitting Diagnosis Left knee end-stage osteoarthritis. Reason for Hospitalization: elective surgery HPI Yanet Mock is a 78 year old female who was admitted on Oct 07, 2018 at 08:43 for Left knee end stage osteoarthritis. Patient was admitted for left total knee replacement Consultations Dr Gasca - IM/cardio Dr Milner - pain specialist Procedures s/p 10/08/[address] Umair Reilly Left total knee replacement Hospital Course status post surgery course of recovery uneventful initially IV fluids s/p perioperative antibiotics neurovascular status closely monitored, stable incision clean, dry ,and intact surgical dressing changed prior to discharge , incision healing pain management addressed pain specialist followed; pain controlled hemodynamically stable ambulated with PT with weight bearing as tolerated with front wheel walker fall precautions maintained DVT prophylaxis with Lovenox provided use of incentive spirometry was encouraged while in the bed patient was on Cipro for 3 days for possible UTI , no fevers, no difficulties voiding after Kumar discontinued patient tolerated diet , IV fluids discontinued GI prophylaxis provided antiemetics were on board as needed pathology of knee bone revealed degenerative osteoarthritis blood pressure was clsoely monitored, remained stable statin continued initially Kumar catheter , which was discontinue, patient voided freely using bedside commode bowel regimen instituted patient was stable for discharge discharge instructions provided follow up with surgeon as outpatient as advised by surgeon FINAL DIAGNOSES Left knee end-stage osteoarthritis. s/p Left total knee replacement History of pulmonary emboli History of DVT Hypertension Hypercholesterolemia GERD Possible UTI Discharge Condition Upon Discharge: stable Discharge Disposition Patient was discharged to Home () Discharge Instructions Discharge Instructions Special Instructions I have been assigned to complete a D/C Summary on this account. I was not involved in the patient management Bernice Workman NP Oct 14, 2018 12:58
== END 2018-10-11 16:30 | disposition home or self-care (01) | DRG 470 ==
LOC: SDSOVERFLO 08:43 → 3E 14:15
PROC: 0SRD0J9 Replacement of Left Knee Joint with Synthetic Substitute, Cemented, Open Approach (ICD-10-PCS; principal; 2018-10-08)
DX: M17.12 Unilateral primary osteoarthritis, left knee (principal); N39.0 Urinary tract infection, site not specified; Z86.711 Personal history of pulmonary embolism; Z86.718 Personal history of other venous thrombosis and embolism; I10 Essential (primary) hypertension; E78.00 Pure hypercholesterolemia, unspecified; K21.9 Gastro-esophageal reflux disease without esophagitis; Z79.82 Long term (current) use of aspirin; G89.18 Other acute postprocedural pain
CPT/HCPCS: 36415; 81003; 85025; 85610; 86850; 86900; 86901; 86920; 87081; J2250; J2405; J2765